=== PATIENT | male | born 1945 | race Caucasian/White ===

== ENCOUNTER → 2022-01-11 | Outpatient (CLI) | payer OTHER | LOC: M CARPUL 12:24 | PROVIDERS: ATTEND Internal Medicine Critical Care Medicine | DX: R91.8 Other nonspecific abnormal finding of lung field (principal); J44.9 Chronic obstructive pulmonary disease, unspecified; D35.00 Benign neoplasm of unspecified adrenal gland ==

== ENCOUNTER → 2022-03-23 | Outpatient (CLI) | payer OTHER ==
[~2022-03-23] MED LIST: ALBU6.7H6 INH; ATOR1TAB21 PO; CLON0.5T17 PO; FLUT1INH3 IN; HYDR12.55 PO; METF500T13 PO; PRESCAP PO; TIOT18INH INH; ZOLO100T PO
== END ==
LOC: M LABSMTC 11:15
PROVIDERS: ATTEND Anesthesiology
DX: Z01.812 Encounter for preprocedural laboratory examination (principal); Z20.822 Contact with and (suspected) exposure to COVID-19

== ENCOUNTER 2022-03-24 15:08 | Day surgery (SDC) | payer MEDICARE, OTHER ==
[~2022-03-24] VITALS: Ht 172.7 cm; Wt 100.8 kg
[~2022-03-24 15:08] MED LIST changes: +ceFAZolin SOD 2 GM in IV 1 EA IV ONE
[2022-03-24] MEDS ORDERED: LIDOCAINE 1% SDV 30ML VIAL As Ordered ONE (16:52)
[2022-03-24] MEDS ORDERED: propofoL 500 MG/50 ML VIAL As Ordered ONE ×2 (16:54→18:02)
[2022-03-24] MEDS ORDERED: LIDOCAINE 2% 100MG/5ML SDV (FOR ANES.) As Ordered ONE (16:54)
[2022-03-24] MEDS ORDERED: MIDAZOLAM INJ 2MG/2ML VIAL (J2250 PER 1MG) As Ordered ONE (16:55)
[2022-03-24] MEDS ORDERED: fentaNYL 100 MCG/2 ML INJECTION As Ordered ONE (16:55)
[2022-03-24] MEDS ORDERED: ONDANSETRON 4MG 2ML VIAL IV PRN (18:55)
[2022-03-24] MEDS ORDERED: LR 1,000 ML IV SCH (18:55)
[2022-03-24] MEDS ORDERED: oxyCODONE 5MG TAB PO PRN (18:55)
[2022-03-24] MEDS ORDERED: traMADol 50 MG TAB PO PRN (19:05)
[2022-03-24 19:45] VITALS: BP 153/68
[2022-03-24 20:15] VITALS: BP 130/62
[2022-03-24 21:15] VITALS: BP 138/69
[2022-03-24 22:15] VITALS: BP 147/75
[2022-03-24] MEDS: ACETAMINOPHEN TAB 650MG DOSE (2X325MG) PO PRN (22:25)
[2022-03-24 23:15] VITALS: BP 144/69
[2022-03-25 00:15] VITALS: BP 145/67
[2022-03-25] MEDS: ceFAZolin SOD 1 GM in D5W MINI-BAG PLUS 50 ML IV SCH ×3 (01:38→16:02)
[2022-03-25 04:00] VITALS: BP 132/61
[2022-03-25 07:35] VITALS: BP 105/63
[2022-03-25 08:00] VITALS: BP 156/78
[2022-03-25] MEDS ORDERED: TIOTROPIUM INHALER/CAPSULE (SPIRIVA) INH SCH (08:00)
[2022-03-25] MEDS ORDERED: metFORMIN (GLUCOPHAGE) 500MG TAB PO SCH (08:00)
[2022-03-25] MEDS: ACETAMINOPHEN TAB 650MG DOSE (2X325MG) PO PRN ×2 (08:37→14:01)
[2022-03-25] MEDS ORDERED: SERTRALINE 100 MG TAB PO SCH (09:00)
[2022-03-25] MEDS ORDERED: clonazePAM 0.5 MG TAB PO SCH (09:00)
[2022-03-25] MEDS ORDERED: ATORVASTATIN 20 MG TAB PO SCH (09:00)
[2022-03-25] MEDS ORDERED: hydroCHLOROthiazide 12.5 MG CAPSULE PO SCH (09:00)
[2022-03-25 11:50] VITALS: BP 130/67
[2022-03-25] MEDS ORDERED: ALBUTEROL 90 MCG/ACT 8GM HFA INHALER INH PRN (15:45)
[2022-03-25 15:58] VITALS: BP 136/67
== END 2022-03-25 17:07 | disposition home or self-care (01) ==
LOC: M SDC 15:08 → M PCU 19:45 → UNDOADMIN 19:45 → M PCU 03-25 17:07 → UNDODISIN 03-25 17:07 → M SDC 03-25 17:07
PROVIDERS: ATTEND Internal Medicine Cardiovascular Disease
DX: I44.2 Atrioventricular block, complete (principal); I25.10 Atherosclerotic heart disease of native coronary artery without angina pectoris; J44.9 Chronic obstructive pulmonary disease, unspecified; G47.33 Obstructive sleep apnea (adult) (pediatric); E66.9 Obesity, unspecified; Z68.34 Body mass index [BMI] 34.0-34.9, adult; Z98.41 Cataract extraction status, right eye; Z98.42 Cataract extraction status, left eye; Z87.891 Personal history of nicotine dependence; I10 Essential (primary) hypertension; R94.31 Abnormal electrocardiogram [ECG] [EKG]
CPT/HCPCS: 33208; 71045; 71046; 76000; 93005; 94640; 94660; 96365; 96366; C1785; C1898; J0690; J2250; J3010

== ENCOUNTER → 2023-04-10 | Outpatient (CLI) | payer OTHER, MEDICARE ==
[~2023-04-10] MED LIST changes: -ceFAZolin SOD 2 GM in IV 1 EA IV ONE
== END ==
LOC: M PLAIMG 14:12
PROVIDERS: ATTEND Internal Medicine Critical Care Medicine
DX: R91.8 Other nonspecific abnormal finding of lung field (principal)

== ENCOUNTER → 2024-01-12 | Outpatient (CLI) | payer OTHER, MEDICARE | LOC: M RAD 12:28 | PROVIDERS: ATTEND Internal Medicine | DX: R91.8 Other nonspecific abnormal finding of lung field (principal) ==

== ENCOUNTER → 2024-02-06 | Outpatient (CLI) | payer OTHER, MEDICARE | LOC: M PLARAD 08:51 | PROVIDERS: ATTEND Internal Medicine Critical Care Medicine | DX: R91.8 Other nonspecific abnormal finding of lung field (principal) | CPT/HCPCS: 78815; A9552 ==

== ENCOUNTER → 2024-07-25 | Outpatient (CLI) | payer MEDICARE, OTHER ==
[~2024-07-25] MED LIST changes: +ALBU8.5H INH; +ELIQ5TAB PO
== END ==
LOC: M ONCR 12:29
PROVIDERS: ATTEND General Practice
DX: R91.8 Other nonspecific abnormal finding of lung field (principal); Z87.891 Personal history of nicotine dependence; Z99.81 Dependence on supplemental oxygen; Z98.52 Vasectomy status; Z80.0 Family history of malignant neoplasm of digestive organs; Z79.01 Long term (current) use of anticoagulants; Z79.51 Long term (current) use of inhaled steroids; Z79.899 Other long term (current) drug therapy

== ENCOUNTER → 2024-08-21 | Outpatient (RCR) | payer MEDICARE, OTHER | LOC: M ONCR 08-01 10:45 | PROVIDERS: ATTEND General Practice | DX: Z51.0 Encounter for antineoplastic radiation therapy (principal); C34.11 Malignant neoplasm of upper lobe, right bronchus or lung ==

== ENCOUNTER → 2024-11-11 | Outpatient (CLI) | payer OTHER, MEDICARE ==
[~2024-11-11] MED LIST changes: +ISOVUE-370 76% 100 ML VIAL As Ordered ONE
== END ==
LOC: M RAD 12:43
PROVIDERS: ATTEND General Practice
DX: C34.11 Malignant neoplasm of upper lobe, right bronchus or lung (principal); J43.9 Emphysema, unspecified; K76.0 Fatty (change of) liver, not elsewhere classified; N28.1 Cyst of kidney, acquired; D35.01 Benign neoplasm of right adrenal gland; K76.89 Other specified diseases of liver
CPT/HCPCS: 71260; 82565; Q9967

== ENCOUNTER → 2024-11-13 | Outpatient (CLI) | payer MEDICARE, OTHER ==
[~2024-11-13] MED LIST changes: -ISOVUE-370 76% 100 ML VIAL As Ordered ONE
== END ==
LOC: M ONCR 10:55
PROVIDERS: ATTEND General Practice
DX: R91.1 Solitary pulmonary nodule (principal); Z87.891 Personal history of nicotine dependence; Z92.3 Personal history of irradiation; Z79.01 Long term (current) use of anticoagulants; Z79.84 Long term (current) use of oral hypoglycemic drugs; Z79.51 Long term (current) use of inhaled steroids; Z79.899 Other long term (current) drug therapy